=== PATIENT | male | born 1950 | race Caucasian/White ===

== ENCOUNTER 2016-08-05 17:32 | Observation (INO) | payer OTHER ==
--- NOTE | ~2016-08-05 | DS ---
Discharge Summary [address] [place]. [address] NAME: MAIA ROLON : 52 STATUS : DIS Milady PAT#: [id number] AGE: 66 ADM/REG DATE : 08/05/16 MR#: [id number] REPORT SERV DATE: 08/10/16 DICTATED BY: YANELY RIVERO DATE: 08/09/16 REPORT STATUS : Draft TRANSCRIBED BY: MODL DATE: 08/09/16 ADMISSION DATE: 08/05/2016 DISCHARGE DATE: 08/09/2016 DISCHARGE DIAGNOSES: 1. Acute encephalopathy, uncertain etiology, resolved at discharge. 2. Fall associated with encephalopathy. 3. Cerebrospinal fluid pleocytosis, uncertain etiology. 4. Small left frontal meningioma. 5. Bilateral hip osteoarthritis, suspicious for avascular necrosis. 6. Immobility, multifactorial. 7. Type 2 diabetes. 8. Hypertension. 9. Chronic obstructive pulmonary disease. 10.Gastroesophageal reflux disease with history of esophagitis. 11.Gout. 12.Herniated nucleus polyposis, central 5-6 with cord compression and myelomalacia and myelopathy, status post anterior cervical diskectomy C5-6, anterior interbody fusion with allograft, and anterior instrumentation with VENTURE plating C5-C6, Dr. Mills, 05/27/2013. 13.Obesity. 14.Nephrolithiasis. 15.Fatty liver. 16.Chronic pain syndrome. 17.Hyperlipoproteinemia. 18.Chronic anemia. 19.Chronic constipation. 20.Poor dentition. 21.Bilateral eyelid cysts. 22.Sepsis with shock 12/2015, secondary to pneumonia. 23.Bacillus bacteremia, uncertain etiology, 02/2013. OPERATIONS AND PROCEDURES: Lumbar puncture by Interventional Radiology, 08/05/2016. PRESENT ILLNESS: This is a 66-year-old white male who was triaged in the emergency room on 08/05/2016, at 1600 hours with stated complaint of weakness, nausea, right hip pain, mechanical fall, and altered mental status. Admission vital signs: Blood pressure 118/91, temp 97.9, pulse 82, respirations 18, O2 sat 97%. After evaluation in the emergency room, his diagnoses were: 1. Encephalopathy. 2. Sepsis criteria without obvious source. He was referred to the Hospitalist Service. He was seen by Dr. Raf Ramos and admitted as described on admission history and physical examination. Discharge Summary [address] [place]. [address] NAME: MAIA ROLON : 52 STATUS : DIS Milady PAT#: [id number] AGE: 66 ADM/REG DATE : 08/05/16 MR#: [id number] REPORT SERV DATE: 08/10/16 DICTATED BY: YANELY RIVERO DATE: 08/09/16 REPORT STATUS : Draft TRANSCRIBED BY: MODL DATE: 08/09/16 Additional history included nausea, vomiting, and headache on the morning of admission followed by new onset left hip and left shoulder pain followed by confusion. ADDITIONAL HISTORY: Per Dr. Ramos. PHYSICAL EXAMINATION: Per Dr. Ramos. ADMISSION LABORATORY: Per Dr. Ramos. HOSPITAL COURSE: He was admitted by Dr. Ramos with: 1. Encephalopathy with headache. 2. Lactic acidosis. 3. Leukocytosis. 4. COPD. On admission, a CT scan of the brain was done. This was followed by a lumbar puncture. He was empirically placed on IV Rocephin and vancomycin. He was given crystalloid volume resuscitation. Additional laboratory studies were obtained. Subsequent consultations were placed with Dr. Chris Ruiz, Tommy Kim, and Aayush Alcantara. His hospitalist care was by Dr. Gomez on 08/06/2016 and 08/07/2016, and the undersigned on 08/08/2016 and 08/09/2016. Dr. Ruiz's diagnosis was delirium of unclear etiology. Dr. Alcantara did not feel that he had a bacterial meningitis. No other symptoms to suggest a viral illness prodrome. He suggested continuing antimicrobial therapy pending cultures and a brain MRI. Dr. Kim thought that he had viral or early bacterial meningitis and recommended adding acyclovir to his therapeutic armamentarium. An EEG was performed which showed a diffusely slow pattern with no seizure activity. She was also concerned about an occupational exposure to lead and recommended a 24-hour urine collection. His lumbar puncture done on 08/05/2016, had 6 white cells per high-power field with a glucose of 66 and a protein of 56.9. Spinal fluid culture was no growth at three days. Blood cultures were no growth at two days. Urinalysis was normal. A chest x-ray did not show any acute cardiopulmonary disease. Based on the above, his antimicrobial therapy initiated on admission was discontinued. A brain MRI showed no evidence for acute intracranial pathology. There was a small 0.7 cm posterior left frontal meningioma over the cerebral convexity. There were small cystic lesions involving the eyelids of uncertain etiology. His spinal fluid encephalitis panel was negative (FilmArray panel). His acyclovir was discontinued. Discharge Summary [address] [address] NAME: MAIA ROLON : 52 STATUS : DIS Milady PAT#: [id number] AGE: 66 ADM/REG DATE : 08/05/16 MR#: [id number] REPORT SERV DATE: 08/10/16 DICTATED BY: YANELY RIVERO DATE: 08/09/16 REPORT STATUS : Draft TRANSCRIBED BY: MODL DATE: 08/09/16 Over the course of his hospitalization, all presenting symptoms resolved and by the time of discharge, he was back to his normal self by his account and by his 's account, who was also present the day of discharge. Of note is that a procalcitonin was less than 0.05, an initial CRP was 5.6 though followup CRP was 57.2. Immunoglobulin levels were normal. His liver tests were normal except for an elevated alkaline phosphatase which has been elevated in the past. His electrolytes, TSH, ammonia, and BNP were normal. In view of his complete clinical improvement, it was felt by Dr. Alcantara and the undersigned that he could be safely discharged home today. He will have outpatient followup to see his primary care physician, Dr. Leroy Chacon, on Tuesday. He will continue his home diet and activity. DISCHARGE MEDICATIONS: Zyloprim 100 mg twice daily, Elavil 25 mg at bedtime, Lipitor 10 mg daily, baclofen 10 mg daily, Cymbalta 60 mg daily, Neurontin 600 mg three times daily, Protonix 40 mg daily, metformin 500 mg daily. If he has recurrence of symptoms leading to presentation or new symptoms, he will require further evaluation as the etiology of this current presentation was unclear. DICTATED BY: Yanely Rivero M.D. DD/LÓPEZ Yaneyl Rivero M.D. / [id number] CC: Parish Saenz D.O. F.A.C.P. Paul Cornea, M.D.
--- NOTE | ~2016-08-05 | EEG ---
Electroencephalogram [facility] [address] [place]. [address] NAME: MAIA ROLON : 52 STATUS : ADM Milady PAT#: [id number] AGE: 66 ADM/REG DATE : 08/05/16 MR#: [id number] REPORT SERV DATE: 08/06/16 DICTATED BY: TOMMY KIM DATE: 08/06/16 REPORT STATUS : Draft TRANSCRIBED BY: MODL DATE: 08/06/16 INTERPRETING PHYSICIAN: Tommy Kim MD - Neurology. EEG NUMBER: [id number]. REASON FOR EEG: Altered mental status, encephalopathy, rule out meningitis. 23 surface electrodes, 10-20 international placement was used. The patient was noted to be awake, drowsy, and asleep throughout the study. Photic stimulation was performed. Video monitoring was utilized. The background activity consisted of moderate voltage, poorly organized 7-9 cycles per second located in the posterior head regions. The patient appeared somnolent throughout the study. Photic stimulation did not produce a driving response. Intermittent sharp in appearance waveforms were seen in the central region, right greater than left, which may not be of clinical significance. This occurred during drowsiness and brief periods of light sleep. 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 IMPRESSION: ABNORMAL EEG CHARACTERIZED BY DIFFUSE SLOWING OF CEREBRAL ACTIVITY. NO PAROXYSMAL ACTIVITY WAS SEEN DURING THE STUDY. LOW VOLTAGE SHARP ACTIVITY NOTED IN THE CENTRAL REGION, MAY NOT BE OF CLINICAL SIGNIFICANCE. CLINICAL CORRELATION IS RECOMMENDED. THIS EEG MAY SUGGEST PRESENCE OF UNDERLYING DIFFUSE CEREBRAL DYSFUNCTION. JOO/LÓPEZ Tommy Kim MD / [id number] CC: MD Mellissa Rodrigues D.O. F.A.C.P.
--- NOTE | ~2016-08-05 | CN ---
Consultation Report [facility] [address] [place]. [address] NAME: MAIA ROLON : 52 STATUS : ADM Milady PAT#: [id number] AGE: 66 ADM/REG DATE : 08/05/16 MR#: [id number] REPORT SERV DATE: 08/09/16 DICTATED BY: TOMMY KIM DATE: 08/08/16 REPORT STATUS : Draft TRANSCRIBED BY: LÓPEZ DATE: 08/08/16 NEUROLOGICAL CONSULTATION. DATE OF CONSULTATION: 08/06/2016 REQUESTING PHYSICIANS: Nabil King MD and Kelly Gomez MD HISTORY OF PRESENT ILLNESS: This is a 66-year-old male with known history of diabetes mellitus and peripheral neuropathy who presented to the emergency room with confusion of two to-three day duration. The patient's was concerned because the patient appeared confused and was having memory problems. In addition, the patient was complaining of a headache. The patient was admitted through the emergency room where a CT scan of the head was performed which showed no significant abnormalities. In addition, the patient was found to have lactic acidosis and leukocytosis. The patient does have history of diabetes mellitus, obesity, obstructive sleep apnea, not clear whether the patient uses his CPAP. On the day of admission, the patient presented with nausea, vomiting, and headache. The headache was described as quite severe, 8/10. The patient also was complaining of having pain in his shoulder and hip pain, the source of his chronic pain however. In the emergency room, the patient was "confused," and incoherent. He did not describe having chills or fever. There is no shortness of breath or chest pain. The patient did not have diarrhea and no recent exposure to anyone with viral illnesses. PAST MEDICAL HISTORY: Significant also for history of hypertension; COPD, the patient continues to smoke a pipe; pneumonia with sepsis in 12/2015; GI reflux; gout; fatty liver disease; left humerus fracture, nonsurgical; chronically elevated liver enzymes; and obesity. PAST SURGICAL HISTORY: Lumbar spine surgery in 2013. ALLERGIES: NO KNOWN ALLERGIES. SOCIAL HISTORY: As mentioned above, the patient smokes a pipe. There is no history of alcohol use. The patient has three children, currently his grandson lives with him. 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 FAMILY HISTORY: Significant history of coronary artery disease in mother, history of heart disease in the patient's father who young. The patient's sister at age 42, of heart attack. MEDICATIONS: Medications prior to admission included Cymbalta 60 mg per day, Neurontin 600 mg t.i.d., Zestril 10 mg daily, metformin 500 mg daily, allopurinol 100 mg daily, Elavil 25 mg at bedtime. Consultation Report [facility] [address] [place]. [address] NAME: MAIA ROLON : 52 STATUS : ADM Milady PAT#: [id number] AGE: 66 ADM/REG DATE : 08/05/16 MR#: [id number] REPORT SERV DATE: 08/09/16 DICTATED BY: TOMMY KIM DATE: 08/08/16 REPORT STATUS : Draft TRANSCRIBED BY: LÓPEZ DATE: 08/08/16 PHYSICAL EXAMINATION: VITAL SIGNS: On admission show blood pressure of 118/91, respirations was 18, temperature was 97.9. HEAD AND NECK: Examination showed him to be normocephalic. There was no evidence of trauma. EYES: Sclerae were not icteric. Conjunctivae were pink. The patient had several large cystic lesions in left epicanthus and right lower eye lid, appeared to be chronic. ENT: Tongue was midline. Airway appeared small, Mallampati class III to IV. NECK: Supple, appeared to be slightly stiff, but there was no Kernig or Brudzinski. Cervical range of motion was mildly impaired on lateral flexion. CHEST: Symmetrical. Lungs are clear to auscultation. HEART: Regular. S1 and S2. I do not appreciate any murmurs or rubs. ABDOMEN: Obese, soft, nontender. No organomegaly. EXTREMITIES: Showed trophic changes distally secondary to peripheral neuropathy with high arches and crawled up toes. Chronic fungal infection on the toes. NEUROLOGICAL EXAMINATION: MENTAL STATUS EXAM: The patient was somnolent, but aroused. Appeared to be cooperative, responded to questions; however, his mood was at times inappropriate. The patient had no insight into his situation, although stated that he did not feel well. The patient was oriented to self, not oriented to the hospital. Date was "July." His speech was fluent. There was no evidence of aphasia or dysarthria. The patient would fall asleep readily, appeared to have intermittent periods of sleep apnea while asleep. No hallucinations or delusions noted. The patient appeared calm and not agitated. CRANIAL NERVE EXAMINATION II THROUGH XII: Visual turner on confrontation appeared intact. Funduscopic exam showed no evidence of papilledema, hemorrhages, or exudates. Extraocular movements appeared full. There was no nystagmus. No limitation of upward gaze was noted. Facial sensation, muscles of mastication, and muscles of facial expression show no evidence of asymmetry or weakness. The rest of cranial nerve examination appeared intact, hearing was intact bilaterally. Lower cranial nerves appeared intact. MOTOR EXAM: The patient's muscle bulk and tone was normal. In upper extremities, no significant weakness was noted. The lower extremities except for right leg, which as per patient has a problem with the "hip." Deep tendon reflexes were absent in lower extremities, 1+/2 in upper extremities. Sensory exam showed stocking distribution to pinprick, light touch, and vibration distally in lower extremities. Position sense was mildly impaired. CEREBELLAR EXAM: [id number] showed endpoint tremor which appeared to be fine and there was no ataxia. Sshl-cd-xcoh appeared intact. Gait could not be tested at this time secondary to the patient's condition. LABORATORY STUDIES: WBC count 11.2, hemoglobin 12.7, hematocrit 38.6, platelet count 216,000. Sodium 142, potassium 4.2, chloride 111, BUN 12, creatinine 0.89, GFR 104, glucose 81, calcium 8.8, magnesium 2. TSH 0.761. BMP 22.4. CT scan of the head on admission was normal. Consultation Report [address] [address] NAME: MAIA ROLON : 52 STATUS : ADM Milady PAT#: [id number] AGE: 66 ADM/REG DATE : 08/05/16 MR#: [id number] REPORT SERV DATE: 08/09/16 DICTATED BY: TOMMY KIM DATE: 08/08/16 REPORT STATUS : Draft TRANSCRIBED BY: LÓPEZ DATE: 08/08/16 IMPRESSION: 1. Probable viral or early bacterial meningitis, recommend to add acyclovir to the patient's regimen of antibiotics, Infectious Disease consult. 2. Encephalopathy. EEG appears to be diffusely slow. No seizure activity seen. Obesity. 3. Obstructive sleep apnea, it is not clear whether the patient is on CPAP. The patient's should bring the CPAP from home. Recommend to obtain MRI of the brain to rule out stroke or evaluate possible extensive sinus infection that may predispose the patient to have meningitis. 4. Diabetes mellitus with multiple complications including peripheral neuropathy. 5. Chronic lumbar back pain. The patient has been on multiple medications; however, no narcotics were included in the list. 6. 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 Would consider obtaining 24-hour urine collection for lead or other heavy metals if the patient's symptoms do not improve. Although the patient does have peripheral neuropathy, it does not appear to represent neuropathy secondary to heavy metal or lead exposure. There is no foot drop or wrist drop. Occasionally, neuropathy may be a mixed presentation, motor and sensory. We will follow the patient with you. The patient's CSF results which were obtained after the lumbar puncture showed 14 wbc's and protein of 59.6. We will discuss with the patient's primary physician and ID sales development consultant. Thank you for allowing me to participate in this patient's care. JOO/LÓPEZ Tommy Kim MD / [id number]
--- NOTE | ~2016-08-05 | CN ---
Consultation Report [facility] [address] [place]. [address] NAME: MAIA ROLON : 52 STATUS : ADM Milady PAT#: [id number] AGE: 66 ADM/REG DATE : 08/05/16 MR#: [id number] REPORT SERV DATE: 08/06/16 DICTATED BY: AAYUSH DUNBAR DATE: 08/06/16 REPORT STATUS : Draft TRANSCRIBED BY: MODDulce Maria DATE: 08/06/16 INFECTIOUS DISEASE CONSULT DATE OF CONSULTATION: REASON FOR CONSULT: Abnormal CSF. HISTORY OF PRESENT ILLNESS: A 66-year-old white male with history of diabetes, obesity, hypertension, COPD, GERD, gout, degenerative joint disease, who was brought to the hospital because of altered mental status and weakness. The patient does not provide much information. He mostly tells me he wants to go home. He remembers having a fall. His tells me that he is typically limited in his activity, mostly sits in a chair for a long periods of time. A few days ago, he had some "bad cough." It sounded like he was trying to expectorate something. That has gotten better with some nebulizer treatment. He then slept a lot for about 24 hours and she just checked on him from time to time. After he woke up from sleeping in a chair, he tried to get up and could not hold himself, so fell on his knees. The called the paramedics who got him up or in the bed, but the patient refused to go to the hospital. He has had some heavy breathing at some point. She then heard him talk on the phone with somebody who turned out to be a lifeline counselor. She thinks that maybe he accidentally called or pushed that button. He was recommended to go to the hospital which the agreed with. The chart mentions that he has headache, confusion, nausea, vomiting, right hip and left shoulder pain, but when I asked the , she did not report any vomiting. She was unaware of any particular pain, headache, fever, or sweats. When I asked the patient, he mentioned some mild frontal headache. No nausea or vomiting. No urinary symptoms. No acute shortness of breath. He does have joint pains. LABORATORY WORK: Upon admission, lab work showed a WBC of 11, a lactic acid of 3.4. Liver enzymes within normal limits. Creatinine 1.1. Hemoglobin 14. Urinalysis is unremarkable. Chest x-ray, no active disease. CT of the brain without contrast, no acute findings. He was started on vancomycin, Rocephin, and acyclovir. He had a spinal tap. The CSF showed 14 white blood cells with 74% lymphocytes, 41 red blood cells, protein 57, and glucose 66. Today, he is afebrile. Further lab work showed a procalcitonin that is not elevated. CRP and sedimentation rate not elevated. Lactic acid down to 1.9. WBC 11, hemoglobin 12, TSH 0.7. Creatinine 0.8. He was seen in consult by Psychiatry, who thought that he is delirious and by Neurology who thought he is encephalopathic. An MRI of the brain was ordered and is pending. PAST MEDICAL HISTORY: As I mentioned above plus history of kidney stones, hepatic steatosis by previous CT scan, degenerative joint disease of the spine. In 2013, I saw him when he Consultation Report [address] [address] NAME: MAIA ROLON : 52 STATUS : ADM Milady PAT#: [id number] AGE: 66 ADM/REG DATE : 08/05/16 MR#: [id number] REPORT SERV DATE: 08/06/16 DICTATED BY: AAYUSH DUNBAR DATE: 08/06/16 REPORT STATUS : Draft TRANSCRIBED BY: LÓPEZ DATE: 08/06/16 had bacillus bacteremia, but I do not think any obvious infection was found or source of infection. Dr. Oliveira saw him in 2013 when he had olecranon bursitis and ended up having a C5 C6 diskectomy and fusion surgery. In 2016, he was admitted with reported septic shock and had a left humeral neck fracture. In the past, he had an EGD that showed reflux esophagitis. He had appendectomy. FAMILY HISTORY: Heart disease and cancer. SOCIAL HISTORY: He lives with his , two sons, one grandson, one dog, one cat, one bird, and a fish tank. He smokes a pipe. He reports no animal bites or scratches. No sick contacts. No travel. The tells me he does not really go outside the house. ALLERGIES: NONE. MEDICATIONS ON ADMISSION: Allopurinol, amitriptyline, Lipitor, baclofen, duloxetine, gabapentin, lisinopril, metformin, Protonix. PHYSICAL EXAMINATION: GENERAL: He is awake, he knows he is in the hospital. He tells me all these details about his family. HEENT: He has a lot of dental fillings. He has a couple of cysts on his eyelids bilaterally. LUNGS: Seem clear to auscultation. No wheezes, rhonchi, or rales, but he has a thick chest wall. HEART: Regular rhythm. Distant sounds. ABDOMEN: Very obese, nontender. : Pubic area with a lot of fatty deposits. SKIN: Without obvious rash. EXTREMITIES: He is able to lift both arms and legs against gravity. Feet with very thickened skin and a couple of scabs on the left great toe. He has onychogryphosis of the left great toe. ASSESSMENT AND PLAN: 1. Mild cerebrospinal fluid lymphocytic pleocytosis with increased protein level. 2. Encephalopathy. 3. Chronic pain, on gabapentin, baclofen, and Elavil. 4. Diabetes, hypertension, chronic obstructive pulmonary disease, gastroesophageal reflux disease, degenerative joint disease. Unfortunately, the history may be somehow limited at least from the patient, but nothing really obvious. The was concerned about some episodes of cough, and I wonder if he has episodes of aspiration. The procalcitonin, CRP, and sedimentation rate are not elevated. He is awake, but is seems that sometimes he does not answer appropriately. I feel a Consultation Report [address] [place]. [address] NAME: MAIA ROLON : 52 STATUS : ADM Milady PAT#: [id number] AGE: 66 ADM/REG DATE : 08/05/16 MR#: [id number] REPORT SERV DATE: 08/06/16 DICTATED BY: AAYUSH DUNBAR DATE: 08/06/16 REPORT STATUS : Draft TRANSCRIBED BY: MODL DATE: 08/06/16 bacterial meningitis is unlikely here. No symptoms to suggest a viral illness prodrome. No outdoor activities that expose him to ticks or mosquito bites. He does have several pets, but reports no bites or scratches. He was already started on multiple antibiotics. Pending cultures and MRI of the brain, we will continue. Suggest limiting sedatives and treat him for sleep apnea, which could be a cause of encephalopathy as well. PC/MODL Aayush Dunbar M.D. / [id number] CC: MD Mellissa Rodrigues D.O. F.A.C.P.
--- NOTE | ~2016-08-05 | CN ---
Consultation Report [facility] [address] [place]. [address] NAME: MAIA ROLON : 52 STATUS : ADM Milady PAT#: [id number] AGE: 66 ADM/REG DATE : 08/05/16 MR#: [id number] REPORT SERV DATE: 08/06/16 DICTATED BY: CHRIS MARTINEZ DATE: 08/06/16 REPORT STATUS : Draft TRANSCRIBED BY: LÓPEZ DATE: 08/06/16 PSYCHIATRIC CONSULTATION DATE OF CONSULTATION: 08/06/2016 I reviewed this patient's medical record. I discussed the patient's status with Dr. King, his hospitalist. I discussed the patient's history with his . HISTORY OF PRESENT ILLNESS: He was admitted with a two-day history of confusion. His reported that she first noticed he was repeating himself on 08/04/2016. PAST PSYCHIATRIC HISTORY: His reported no pre-existing psychiatric disturbance. SOCIAL HISTORY: He has been for 43 years. 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 Their 4-year-old grandson lives with them. They have two sons. MENTAL STATUS: He was pleasant and cooperative in attitude. His mood had an euphoric bias. He frequently laughed, joked, and tried to express humor. He continued to show evidence of confusion. He frequently confabulated about issues. For example, he talked about not wanting to return to the [facility], even though as far as I know he had not been to a [facility] prior to this admission. He was oriented to "07/07"-"1973, no it is 1994"- "[facility]." He had no memory for making a suicidal statement last night. He said "my probably said that." DIAGNOSIS: Delirium of unclear etiology. RECOMMENDATIONS: He consistently denies any suicidal intent. The statement which was thought to indicate suicidal intent was most likely just a product of his confusion. We can discontinue suicide precautions. I will sign off. KJ/LÓPEZ Chris Martinez M.D. / [id number] CC: MD Mellissa Rodrigues D.O. F.A.C.P.
--- NOTE | ~2016-08-05 | HP ---
History And Physical [address] [place]. [address] NAME: MAIA ROLON : 52 STATUS : ADM Milady PAT#: [id number] AGE: 66 ADM/REG DATE : 08/05/16 MR#: [id number] REPORT SERV DATE: 08/06/16 DICTATED BY: JACOB ENCINAS DATE: 08/05/16 REPORT STATUS : Draft TRANSCRIBED BY: MODL DATE: 08/05/16 DATE OF ADMISSION: 08/05/2016 CHIEF COMPLAINT: A 66-year-old male, presenting with confusion, headache, weakness. HISTORY OF PRESENTING ILLNESS: The patient's history was obtained through careful interview with the patient, coupled with review of [facility] medical records. The patient states that he woke just on the morning of admission with nausea, vomiting, and a headache. He describes the headache as diffuse, 8/10 severity. He also developed new onset left hip and left shoulder pain. He has chronic discomfort there, but it has really progressed today up to 20/10 pain aching quality. He denies any fall or injury. He has become confused today, incoherent. No hallucinations. He has had lightheadedness though. He has had chills, but no fevers. No shortness of breath. No chest pain. No abdominal pain. No rash. He has a nonproductive cough. REVIEW OF SYSTEMS: Otherwise, a 14-point review of systems was obtained and was negative. PAST MEDICAL HISTORY: 1. COPD. 2. Pneumonia with sepsis in December 2015. 3. Hypertension. 4. Nephrolithiasis. 5. Gastroesophageal reflux disorder, seen by Dr. Stringer. 6. Gout. 7. Chronic pain management for chronic back pain. 8. Fatty liver disease. 9. Left humerus fracture, but not surgical. 10.Elevated liver enzymes chronically. 11.Negative catheterization of the heart in 2006. PAST SURGICAL HISTORY: 1. Appendectomy. 2. Cervical spine surgery in 2013. ALLERGIES: NO KNOWN DRUG ALLERGIES. SOCIAL HISTORY: Smokes a pipe, has a history of cigarette use. No alcohol use. . in good health. Has children who lived locally, has grandchildren. The patient lives in [place], [place]. 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. [address] And Physical [address] [place]. [address] NAME: MAIA ROLON : 52 STATUS : ADM Milady PAT#: [id number] AGE: 66 ADM/REG DATE : 08/05/16 MR#: [id number] REPORT SERV DATE: 08/06/16 DICTATED BY: JACOB ENCINAS DATE: 08/05/16 REPORT STATUS : Draft TRANSCRIBED BY: MODDulce Maria DATE: 08/05/16 He gets around with a walker and a lift chair. FAMILY HISTORY: Diabetes, heart disease, cancer. Mother with CABG. Father in his 40s of heart disease. Had a sister at 42 years of age of heart disease. CURRENT MEDICATIONS: Include allopurinol 100 mg p.o. daily, Elavil 25 mg p.o. daily, Lipitor 10 mg p.o. daily, baclofen 10 mg p.o. daily, Cymbalta 60 mg p.o. daily, Neurontin 600 mg p.o. t.i.d., Zestril 10 mg p.o. daily, metformin 500 mg p.o. daily, Protonix 40 mg p.o. daily. PHYSICAL EXAMINATION: VITAL SIGNS: Temperature 97.9, pulse 82, blood pressure 118/91, respiratory rate 18, and O2 saturation 97% on room air. GENERAL: A very ill-appearing male. He is confused, bizarre in his appearance and his reaction to my history taking, but appropriate and cooperative despite his confusion. HEENT: Pupils equal, round, and reactive to light. No conjunctival pallor. No scleral icterus. Nares are patent. Oropharynx is clear of obstruction. Dry mucous membranes. NECK: Trachea midline. No thyromegaly. LYMPH: No cervical lymphadenopathy. No supraclavicular lymphadenopathy. RESPIRATORY: Clear to auscultation at bases, maybe some mild crackles at the base of lungs, but a nonlabored respiratory effort. CARDIOVASCULAR: Regular rate and rhythm. No murmurs, rubs, or gallops. No extremity edema is appreciated. ABDOMEN: Central pattern of morbid obesity, but nontender throughout, nondistended. No hepatosplenomegaly. DERMATOLOGICAL: Warm and dry extremities. No pallor. No cyanosis is noted. Very poor hygiene of his feet. PSYCHIATRIC: A flat affect and anxious mood. He is alert, but has difficulty with orientation to his recent history. He is oriented to his location, but not to details of time. LABORATORY DATA: Lactic acid 3.4, INR 1.1, AST 24, ALT 26, alkaline phosphatase 183, total bilirubin 1.0, INR 1.1. White blood cell count 11.6, hemoglobin 14, hematocrit 43, platelets 205. Sodium 142, potassium 5.1, chloride 109, bicarbonate 25, BUN 13, creatinine 1.17, glucose 115. Urinalysis: Negative for infection. ABG demonstrates pH 7.34, PaCO2 of 36, PaO2 of 87, bicarbonate of 20. STUDIES: 1. Chest x-ray by my own evaluation shows atelectasis changes. 2. EKG by my own evaluation shows sinus tachycardia, left axis deviation. ASSESSMENT AND PLAN: 1. Encephalopathy with headache. I would like to begin evaluation with a stat CT scan of the brain. If that comes back normal or without any pressing acute abnormality, I will proceed with a lumbar puncture under fluoroscopy tonight. I will cover the patient empirically though this evening with IV Rocephin and IV vancomycin and also consider an MRI of the brain. History And Physical [address] [address] NAME: MAIA ROLON : 52 STATUS : ADM Milady PAT#: [id number] AGE: 66 ADM/REG DATE : 08/05/16 MR#: [id number] REPORT SERV DATE: 08/06/16 DICTATED BY: JACOB ENCINAS DATE: 08/05/16 REPORT STATUS : Draft TRANSCRIBED BY: MODDulce Maria DATE: 08/05/16 2. Lactic acidosis. He does not meet other sepsis criteria though, but we will place on IV fluids, provide supportive care. Check a mesenteric arterial Doppler ultrasound because of vomiting. 3. Leukocytosis, mild, but we will check ESR, CRP, procalcitonin. We will check blood cultures in the emergency department. We will place him on IV Rocephin and IV vancomycin for now and monitor. 4. Chronic obstructive pulmonary disease. Place on DuoNeb nebulizers. KPL/MODL Jacob Encinas M.D. / [id number] CC: MD Mellissa Rodrigues D.O. F.A.C.P.
[2016-08-05 16:56] LABS: BASOPHILS 0.6 %; BASOPHILS ABSOLUTE 0.07 10/3/uL (0.0-0.16); EOSINOPHILS 2.6 %; ER CBC TAT 0 Hrs 09 Mins; HEMATOCRIT 43.1 % (40.0-51.0); HEMOGLOBIN 13.9 g/dL (13.6-17.8); IMMATURE GRANULOCYTES 0.3 %; IMMATURE GRANULOCYTES ABSOLUTE 0.03 10/3/uL (0.0-0.11); LYMPHOCYTES ABSOLUTE 2.67 10/3/uL (0.67-4.30); MANUAL DIFF NO %; MEAN CORPUS HGB CONC 32.3 g/dL (32.0-36.0); MEAN CORPUSCULAR HEMOGLOB 27.6 pg (26.0-34.0); MEAN CORPUSCULAR VOLUME 85.5 fL (80-100); MEAN PLATELET VOLUME 9.5 fL (9.2-13.0); MONOCYTES 7.4 %; MONOCYTES ABSOLUTE 0.86 10/3/uL (0.21-1.20); NEUTROPHILS 66.1 %; NEUTROPHILS ABSOLUTE 7.67 10/3/uL (2.02-8.40); PLATELET COUNT 205 10/3/uL (150-400); RBC DISTRIBUTION WIDTH 15.3 % (12.0-16.0); RED CELL COUNT 5.04 10/6/uL (4.7-6.1); WHITE BLOOD CELLS 11.6 10/3/uL (4.5-10.5)
[2016-08-05 17:00] LABS: INTERNATIONAL NORMAL RATI 1.1 UNITS (-); PARTIAL THROMBO TIME 29.5 SEC (22.5-37.2); PROTIME (NOT ORD) 13.9 SEC (12.0-14.5)
[2016-08-05 17:03] LABS: ASCORBIC ACID (UR NOT ORDER) NEG (NEG); BILIRUBIN, URINE NEGATIVE (NEG); ER URINALYSIS TAT 0 Hrs 14 Mins; KETONE, URINE NEGATIVE (NEG); LEUKOCYTE ESTERASE(NOT OR NEG (NEG); NITRITE (URINE) NEG (NEG); WBC (NOT ORDERED) (RFLEX) < 1 (0-5)
[2016-08-05 17:06] LABS: ALLENS TEST Pos; BE (BASE EXCESS) -4.4 MEQ/L (0 +/- 2.5); CARBOXYHEMOGLOBIN 1.2 % (0-3); HCO3 (ACTUAL BICARBONATE) 20.2 MEQ/L (23-27); HEMOBLOGIN CONTENT 14.3 G/DL (14-18); INSTRUMENT SERIAL # 8087; METHEMOGLOBIN 0.1 % (0-3); O2 CONTENT 19.2 VOL% (18-24); PCO2 (CO2 TENSION) 36 MMHG (35-45); PO2 (O2 TENSION) 87 MMHG (79-93); SAMPLE Arterial; pH 7.37 (7.37-7.43)
[2016-08-05 17:09] LABS: CALCIUM, SERUM 9.2 MG/DL (8.5-10.4); CHLORIDE, SERUM 109 MMOL/L (96-112); CO2 (CARBON DIOXIDE) 25 MMOL/L (24-34); CREATININE 1.17 MG/DL (0.70-1.30); GFR AFRICAN AMERICAN 75 ML/MIN (>=60); GFR NON AFRICAN AMERICAN 65 ML/MIN (>=60); GLUCOSE, SERUM 115 MG/DL (60-99); POTASSIUM, SERUM 5.1 MMOL/L (3.5-5.3); SGOT(AST) 24 U/L (5-40); SGPT(ALT) 26 U/L (5-65); SODIUM, SERUM 142 MMOL/L (135-148); TOTAL PROTEIN 7.9 G/DL (6.0-8.5)
[2016-08-05 17:11] LABS: ALBUMIN 3.9 G/DL (3.5-5.0); ALKALINE PHOSPHATASE 183 U/L (45-117); BUN (BLOOD UREA NITROGEN) 13 MG/DL (6-23)
[2016-08-05 17:27] LABS: LACTATE 3.4 MMOL/L (0.3-2.4)
[~2016-08-05 17:32] MED LIST: ALEVE220 MG PO; AMIT25 PO; AMIT50 PO; ASAB PO; CYMBALTA60 PO; FLEX PO; GLUCPH PO; HCTZ12.5 PO; LEVAQUIN750 MG PO; LIOR10 PO; LIPITOR10 PO; NEUR600 PO; OXYCOD PO; PEP20 PO; PRIN10 PO; PROTONIX PO; ULTRAM50 PO; Z100 PO; ZESTRIL20 MG PO
[2016-08-05] MEDS ORDERED: LIPITOR10 PO (19:26)
[2016-08-05] MEDS ORDERED: AMIT25 PO (19:26)
[2016-08-05] MEDS ORDERED: LIOR10 PO (19:27)
[2016-08-05] MEDS ORDERED: PROTONIX PO (19:27)
[2016-08-05] MEDS ORDERED: ZESTRIL10 MG PO (19:28)
[2016-08-05] MEDS ORDERED: NEUR600 PO (19:28)
[2016-08-05] MEDS ORDERED: Z100 PO (19:29)
[2016-08-05] MEDS ORDERED: CYMBALTA60 PO (19:30)
[2016-08-05] MEDS ORDERED: GLUCPH PO (19:31)
[2016-08-06 00:17] LABS: GLUCOSE CSF 66 MG/DL (45-70); TOTAL PROTEIN, CSF 56.9 MG/DL (15-45)
[2016-08-06 00:57] LABS: CSF BASO 0 % (NO REF RANGE); CSF EOS 0 % (0-1); CSF LYMPH (NOT ORD) 74 % (28-96); CSF MONO 26 % (16-56); CSF SEGS (NOT ORD) 0 % (0-7)
[2016-08-06 01:01] LABS: CSF COLOR (NOT ORD) COLORLESS (COLORLESS); CSF RBC (NOT ORD) 41 MM3 (NO REFERENCE); CSF WBC (NOT ORD) 14 /uL (0-10)
[2016-08-06 01:02] LABS: CSF APPEARANCE (NOT ORD) CLEAR (CLEAR); CSF XANTHROCHROMIA NEG (NEG)
[2016-08-06 06:59] LABS: BASOPHILS 0.4 %; BASOPHILS ABSOLUTE 0.04 10/3/uL (0.0-0.16); EOSINOPHILS 2.7 %; HEMATOCRIT 38.6 % (40.0-51.0); HEMOGLOBIN 12.7 g/dL (13.6-17.8); IMMATURE GRANULOCYTES 0.4 %; IMMATURE GRANULOCYTES ABSOLUTE 0.04 10/3/uL (0.0-0.11); LYMPHOCYTES 24.6 %; LYMPHOCYTES ABSOLUTE 2.74 10/3/uL (0.67-4.30); MANUAL DIFF NO %; MEAN CORPUS HGB CONC 32.9 g/dL (32.0-36.0); MEAN CORPUSCULAR HEMOGLOB 28.1 pg (26.0-34.0); MEAN CORPUSCULAR VOLUME 85.4 fL (80-100); MEAN PLATELET VOLUME 9.9 fL (9.2-13.0); MONOCYTES 8.7 %; MONOCYTES ABSOLUTE 0.97 10/3/uL (0.21-1.20); NEUTROPHILS 63.2 %; NEUTROPHILS ABSOLUTE 7.07 10/3/uL (2.02-8.40); PLATELET COUNT 216 10/3/uL (150-400); RED CELL COUNT 4.52 10/6/uL (4.7-6.1); WHITE BLOOD CELLS 11.2 10/3/uL (4.5-10.5)
[2016-08-06 07:06] LABS: INTERNATIONAL NORMAL RATI 1.1 UNITS (-); PARTIAL THROMBO TIME 31.9 SEC (22.5-37.2); PROTIME (NOT ORD) 14.1 SEC (12.0-14.5)
[2016-08-06 07:16] LABS: C-REACTIVE PROTEIN 5.6 MG/L (<8.0)
[2016-08-06 07:22] LABS: A/G RATIO 0.9 (0.7-1.9); ALBUMIN 3.5 G/DL (3.5-5.0); BUN (BLOOD UREA NITROGEN) 12 MG/DL (6-23); CALCIUM, SERUM 8.8 MG/DL (8.5-10.4); CHLORIDE, SERUM 111 MMOL/L (96-112); CO2 (CARBON DIOXIDE) 23 MMOL/L (24-34); CREATININE 0.89 MG/DL (0.70-1.30); GFR AFRICAN AMERICAN 104 ML/MIN (>=60); GFR NON AFRICAN AMERICAN 90 ML/MIN (>=60); GLOBULIN 3.8 G/DL (2.5-4.1); POTASSIUM, SERUM 4.2 MMOL/L (3.5-5.3); SGOT(AST) 21 U/L (5-40); SGPT(ALT) 22 U/L (5-65); SODIUM, SERUM 142 MMOL/L (135-148); TOTAL BILIRUBIN 0.8 MG/DL (0-1.2); TOTAL PROTEIN 7.3 G/DL (6.0-8.5); TROPONIN I <0.02 NG/ML (<0.05)
[2016-08-06 07:23] LABS: ALKALINE PHOSPHATASE 165 U/L (45-117); GLUCOSE, SERUM 81 MG/DL (60-99); ULTRASENSITIVE TSH 0.761 MCIU/ML (0.358-3.740)
[2016-08-06 08:17] LABS: PROCALCITONIN <0.05 ng/mL (<0.5)
[2016-08-06 08:56] LABS: SED RATE 14 MM/HR (0-15)
[2016-08-07 04:25] LABS: BASOPHILS 0.6 %; BASOPHILS ABSOLUTE 0.04 10/3/uL (0.0-0.16); EOSINOPHILS 3.7 %; EOSINOPHILS ABSOLUTE 0.27 10/3/uL (0.0-0.53); HEMATOCRIT 36.8 % (40.0-51.0); IMMATURE GRANULOCYTES 0.1 %; IMMATURE GRANULOCYTES ABSOLUTE 0.01 10/3/uL (0.0-0.11); LYMPHOCYTES 37.7 %; LYMPHOCYTES ABSOLUTE 2.74 10/3/uL (0.67-4.30); MEAN CORPUS HGB CONC 32.6 g/dL (32.0-36.0); MEAN CORPUSCULAR HEMOGLOB 27.5 pg (26.0-34.0); MEAN CORPUSCULAR VOLUME 84.4 fL (80-100); MEAN PLATELET VOLUME 9.7 fL (9.2-13.0); MONOCYTES 8.4 %; MONOCYTES ABSOLUTE 0.61 10/3/uL (0.21-1.20); NEUTROPHILS 49.5 %; NEUTROPHILS ABSOLUTE 3.59 10/3/uL (2.02-8.40); PLATELET COUNT 177 10/3/uL (150-400); RBC DISTRIBUTION WIDTH 14.9 % (12.0-16.0); RED CELL COUNT 4.36 10/6/uL (4.7-6.1); WHITE BLOOD CELLS 7.3 10/3/uL (4.5-10.5)
[2016-08-07 04:42] LABS: MANUAL DIFF NO %
[2016-08-07 04:49] LABS: BUN (BLOOD UREA NITROGEN) 12 MG/DL (6-23); CALCIUM, SERUM 8.5 MG/DL (8.5-10.4); CHLORIDE, SERUM 107 MMOL/L (96-112); CO2 (CARBON DIOXIDE) 26 MMOL/L (24-34); CREATININE 1.01 MG/DL (0.70-1.30); GFR AFRICAN AMERICAN 90 ML/MIN (>=60); GFR NON AFRICAN AMERICAN 78 ML/MIN (>=60); GLUCOSE, SERUM 109 MG/DL (60-99); IMMUNOGLOBULIN A 177 MG/DL (70-420); IMMUNOGLOBULIN G 1150 MG/DL (673-1464); IMMUNOGLOBULIN M 178 MG/DL (30-270); POTASSIUM, SERUM 4.2 MMOL/L (3.5-5.3); SODIUM, SERUM 139 MMOL/L (135-148)
[2016-08-07 10:26] LABS: CHOL/HDL RATIO(NOT ORDER) 2.8 (0-5); CHOLESTEROL 131 MG/DL (< 200); HDL CHOLESTEROL 47 MG/DL (> 39); LDL CHOLESTEROL 49 MG/DL (< 130); NON-HDL CHOLESTEROL 84 MG/DL (< 160); TRIGLYCERIDE 175 MG/DL (< 150)
[2016-08-08 05:33] LABS: BASOPHILS 0.4 %; BASOPHILS ABSOLUTE 0.04 10/3/uL (0.0-0.16); EOSINOPHILS 3.2 %; HEMATOCRIT 38.9 % (40.0-51.0); HEMOGLOBIN 12.9 g/dL (13.6-17.8); IMMATURE GRANULOCYTES 0.3 %; IMMATURE GRANULOCYTES ABSOLUTE 0.03 10/3/uL (0.0-0.11); LYMPHOCYTES 25.2 %; LYMPHOCYTES ABSOLUTE 2.37 10/3/uL (0.67-4.30); MEAN CORPUS HGB CONC 33.2 g/dL (32.0-36.0); MEAN CORPUSCULAR HEMOGLOB 27.8 pg (26.0-34.0); MEAN CORPUSCULAR VOLUME 83.8 fL (80-100); MONOCYTES ABSOLUTE 0.94 10/3/uL (0.21-1.20); NEUTROPHILS 60.9 %; NEUTROPHILS ABSOLUTE 5.72 10/3/uL (2.02-8.40); PLATELET COUNT 193 10/3/uL (150-400); RBC DISTRIBUTION WIDTH 14.9 % (12.0-16.0); RED CELL COUNT 4.64 10/6/uL (4.7-6.1); WHITE BLOOD CELLS 9.4 10/3/uL (4.5-10.5)
[2016-08-08 05:34] LABS: MANUAL DIFF NO %
[2016-08-08 05:46] LABS: BUN (BLOOD UREA NITROGEN) 13 MG/DL (6-23); CALCIUM, SERUM 8.6 MG/DL (8.5-10.4); CHLORIDE, SERUM 108 MMOL/L (96-112); CO2 (CARBON DIOXIDE) 24 MMOL/L (24-34); CREATININE 0.84 MG/DL (0.70-1.30); GFR AFRICAN AMERICAN 106 ML/MIN (>=60); GFR NON AFRICAN AMERICAN 92 ML/MIN (>=60); GLUCOSE, SERUM 99 MG/DL (60-99); POTASSIUM, SERUM 4.2 MMOL/L (3.5-5.3); SODIUM, SERUM 140 MMOL/L (135-148)
[2016-08-08 14:55] LABS: C-REACTIVE PROTEIN 57.2 MG/L (<8.0)
[2016-08-09 05:55] LABS: BASOPHILS 0.4 %; BASOPHILS ABSOLUTE 0.03 10/3/uL (0.0-0.16); EOSINOPHILS 5.7 %; EOSINOPHILS ABSOLUTE 0.41 10/3/uL (0.0-0.53); HEMATOCRIT 36.1 % (40.0-51.0); HEMOGLOBIN 11.8 g/dL (13.6-17.8); IMMATURE GRANULOCYTES 0.3 %; IMMATURE GRANULOCYTES ABSOLUTE 0.02 10/3/uL (0.0-0.11); LYMPHOCYTES 38.3 %; LYMPHOCYTES ABSOLUTE 2.77 10/3/uL (0.67-4.30); MEAN CORPUS HGB CONC 32.7 g/dL (32.0-36.0); MEAN CORPUSCULAR HEMOGLOB 27.3 pg (26.0-34.0); MEAN CORPUSCULAR VOLUME 83.6 fL (80-100); MEAN PLATELET VOLUME 9.9 fL (9.2-13.0); MONOCYTES 8.9 %; MONOCYTES ABSOLUTE 0.64 10/3/uL (0.21-1.20); NEUTROPHILS 46.4 %; NEUTROPHILS ABSOLUTE 3.36 10/3/uL (2.02-8.40); PLATELET COUNT 189 10/3/uL (150-400); RBC DISTRIBUTION WIDTH 14.9 % (12.0-16.0); RED CELL COUNT 4.32 10/6/uL (4.7-6.1); WHITE BLOOD CELLS 7.2 10/3/uL (4.5-10.5)
[2016-08-09 05:57] LABS: MANUAL DIFF NO %
[2016-08-09 06:01] LABS: BUN (BLOOD UREA NITROGEN) 12 MG/DL (6-23); CALCIUM, SERUM 8.5 MG/DL (8.5-10.4); CHLORIDE, SERUM 108 MMOL/L (96-112); CO2 (CARBON DIOXIDE) 26 MMOL/L (24-34); GFR AFRICAN AMERICAN 109 ML/MIN (>=60); GFR NON AFRICAN AMERICAN 94 ML/MIN (>=60); GLUCOSE, SERUM 106 MG/DL (60-99); POTASSIUM, SERUM 4.2 MMOL/L (3.5-5.3); SODIUM, SERUM 138 MMOL/L (135-148)
[2016-08-09 08:52] LABS: CRYPTO NEOFORMANS/GATTI BY PCR Negative (NEG); CYTOMEGALOVIRUS (BY PCR) Negative (NEG); ENTEROVIRUS (BY PCR) Negative (NEG); ESCHERICHIA COLI (BY PCR) Negative (NEG); HAEMOPHILUS INFLUENZAE BY PCR Negative (NEG); HERPES SIMPLEX VIRUS 1 BY PCR Negative (NEG); HERPES SIMPLEX VIRUS 2 BY PCR Negative (NEG); HUMAN HERPESVIRUS 6 (BY PCR) Negative (NEG); LISTERIA MONOCYTOGENES BY PCR Negative (NEG); NEISSERIA MENINGITIDIS BY PCR Negative (NEG); PARECHOVIRUS (BY PCR) Negative (NEG); STREP AGALACTIAE (BY PCR) Negative (NEG); STREP PNEUMONIAE (BY PCR) Negative (NEG); VARICELLA-ZOSTER VIRUS BY PCR Negative (NEG)
[2016-08-09 13:54] LABS: HSV DNA TYPE 1 Not Detected (NOTDET); HSV DNA TYPE 2 Not Detected (NOTDET)
[2016-09-05] MEDS ORDERED: Z100 PO (19:34)
[2016-09-05] MEDS ORDERED: GLUCPH PO (19:34)
[2016-09-05] MEDS ORDERED: NEUR600 PO (19:34)
[2016-09-05] MEDS ORDERED: CYMBALTA60 PO (19:35)
[2016-09-05] MEDS ORDERED: PROTONIX PO (19:35)
[2016-09-05] MEDS ORDERED: LIOR10 PO (19:35)
[2016-09-05] MEDS ORDERED: AMIT25 PO (19:36)
[2016-09-05] MEDS ORDERED: SEROQUEL50 MG PO (19:36)
[2016-09-05] MEDS ORDERED: LIPITOR10 PO (19:36)
[2016-10-21] MEDS ORDERED: LIOR10 PO (05:24)
[2016-10-21] MEDS ORDERED: Z100 PO (05:25)
[2016-10-21] MEDS ORDERED: CYMBALTA60 PO (05:25)
[2016-10-21] MEDS ORDERED: GLUCPH PO (05:26)
[2016-10-21] MEDS ORDERED: PROTONIX PO (05:26)
[2016-10-21] MEDS ORDERED: NEUR600 PO (05:27)
[2016-10-21] MEDS ORDERED: LIPITOR10 PO (05:27)
== END 2016-08-09 17:55 | disposition home or self-care (01) ==
LOC: ER 17:32 → 7NO 19:18
PROVIDERS: Emergency Medicine; Hospitalist; Internal Medicine; Internal Medicine Infectious Disease
DX: G93.40 Encephalopathy, unspecified (principal); E87.2 Acidosis; D72.829 Elevated white blood cell count, unspecified; J44.9 Chronic obstructive pulmonary disease, unspecified; Z90.49 Acquired absence of other specified parts of digestive tract; I10 Essential (primary) hypertension; Z87.442 Personal history of urinary calculi; K21.9 Gastro-esophageal reflux disease without esophagitis; M10.9 Gout, unspecified; Z98.890 Other specified postprocedural states
CPT/HCPCS: 36600; 62270; 70450; 70553; 71010; 72170; 73030-RT; 77003; 80048; 80053; 80061; 81001; 82140; 82784; 82805; 82945; 82962; 83605; 83735; 83880; 84145; 84157; 84443; 84484; 85025; 85610; 85652; 85730; 86140; 87040; 87070; 87205; 87496; 87498; 87529; 87529-59; 87532; 87653; 87798; 89051; 93005; 93975; 94640; 95816; 95819; 96372; 96374; 96375; 96376; 99285; A9270-GY; A9577; G0378; J0133; J3370